=== PATIENT | male | born 1960 | race African-American/Black ===

== ENCOUNTER 2017-08-03 11:22 | Inpatient (IN) | payer OTHER ==
[~2017-08-03] VITALS: Ht 180.3 cm; Wt 77.0 kg
[~2017-08-03 11:22] MED LIST: ALBU8HFA4 IH; AMLO-511 PO; ASPI-556 PO; ATOR20TA86 PO; HYDR-305 PO; LOSA100T29 PO; METF500T6 PO; MOME13HF IH; PANT40TA25 PO; PROM5SYR2 PO; TADA20TA PO; TIOT185 IH
[2017-08-03 11:43] LABS: GLUCOSE,POINT OF CARE 102 MG/DL (70-110)
[2017-08-03 12:45] LABS: EOSINOPHILS % (AUTO) 1.8 % (1.0-6.0); HEMATOCRIT 49.4 % (41-53); HEMOGLOBIN 16.7 g/dL (13.5-17.5); LYMPHOCYTES # (AUTO) 1.7 K/uL (1.0-4.8); LYMPHOCYTES % (AUTO) 41.2 % (22.0-44.0); MEAN CORPUSCULAR HEMOGLOBIN 31.9 pg (26.0-34.0); MEAN CORPUSCULAR HGB CONC 33.8 G/dL (31.0-37.0); MEAN CORPUSCULAR VOLUME 94 fL (80-100); MONOCYTES # (AUTO) 0.7 K/uL (0.1-1.0); MONOCYTES % (AUTO) 16.8 % (2.0-9.0); NEUTROPHILS # (AUTO) 1.7 K/uL (1.8-7.7); NEUTROPHILS % (AUTO) 39.2 % (40.0-70.0); PLATELET COUNT (AUTO) 124 K/uL (150-450); RED BLOOD CELL COUNT(AUTO) 5.23 MIL/uL (4.50-5.90); RED CELL DISTRIBUTION WIDTH 14.6 % (11.5-14.5)
[2017-08-03] MEDS ORDERED: LORazepam 2 MG/ML VIAL IVP PRN (12:45)
[2017-08-03] MEDS ORDERED: ALBUTEROL SULFATE 2.5 MG/0.5 ML NEB SOLUTION NEB PRN (12:45)
[2017-08-03] MEDS ORDERED: ACETAMINOPHEN 325 MG TABLET PO PRN (12:45)
[2017-08-03] MEDS ORDERED: ONDANSETRON HCL 4 MG/2 ML VIAL IVP PRN (12:45)
[2017-08-03] MEDS ORDERED: BISACODYL 10 MG RECTAL RECTAL SUPPOSITORY PR PRN (12:45)
[2017-08-03] MEDS ORDERED: IPRATROPIUM BROMIDE 0.5 MG/2.5 ML NEB SOLUTION NEB PRN (12:45)
[2017-08-03 12:57] LABS: INR 1.2 (0.9-1.1); PROTHROMBIN TIME 12.7 SEC (9.4-11.6)
[2017-08-03] MEDS ORDERED: POTASSIUM CHLORIDE 20 MEQ ER TABLET PO PRN (13:00)
[2017-08-03] MEDS ORDERED: INSULIN LISPRO 100 UNITS/ML SQ PRN (13:00)
[2017-08-03] MEDS ORDERED: POTASSIUM CHL 10 MEQ/WATER 50 ML IV PRN (13:00)
[2017-08-03] MEDS ORDERED: MAGNESIUM SULFATE 4 GM/WATER 100 ML IV PRN (13:00)
[2017-08-03] MEDS ORDERED: DEXTROSE 50%-WATER 25 GM/50 ML SYRINGE IVP PRN (13:00)
[2017-08-03 13:03] LABS: ANION GAP 8 mmol/L (8-16); CALCIUM, TOTAL 8.4 mg/dL (8.8-10.5); CARBON DIOXIDE 28 mmol/L (22-29); CHLORIDE 103 mmol/L (98-107); CREATININE 0.92 mg/dL (0.60-1.30); GLOMERULAR FILTR. RATE CALC > 60 mL/min (>60); GLUCOSE,RANDOM 96 mg/dL (70-110); POTASSIUM 4.2 mmol/L (3.5-5.1); SODIUM SERUM 139 mmol/L (136-145); UREA NITROGEN, BLOOD 5 mg/dL (7-18)
[2017-08-03 13:08] LABS: ALANINE AMINOTRANSFERASE 151 U/L (12-78); ALBUMIN 3.2 g/dL (3.4-5.0); ALKALINE PHOSPHATASE 185 U/L (46-116); ASPARTATE AMINOTRANSFERASE 142 U/L (15-37); BILIRUBIN,TOTAL 1.6 mg/dL (0.1-1.0); TOTAL PROTEIN, SERUM 7.3 g/dL (6.4-8.2)
[2017-08-03 13:11] LABS: B-TYPE NATRIURETIC PEPTIDE 747 pg/mL (0-100)
[2017-08-03] MEDS: ASPIRIN 81 MG CHEWABLE TABLET PO SCH (13:16)
[2017-08-03] MEDS: FUROSEMIDE 20 MG/2 ML VIAL IVP SCH ×2 (13:22→20:59)
[2017-08-03] MEDS: MULTIVITAMINS WITH MINERALS, THERAPEUTIC TABLET PO SCH (13:26)
[2017-08-03] MEDS ORDERED: CARVEDILOL 3.125 MG TABLET PO ONE (14:00)
[2017-08-03] MEDS ORDERED: METOPROLOL TARTRATE 25 MG TABLET PO SCH (14:00)
[2017-08-03] MEDS: LISINOPRIL 5 MG TABLET PO SCH (14:31)
[2017-08-03] MEDS: MAGNESIUM OXIDE 400 MG TABLET PO PRN ×2 (15:56→20:58)
[2017-08-03 16:02] VITALS: BP 131/86
[2017-08-03 19:42] VITALS: BP 100/78
[2017-08-03] MEDS: DOCUSATE SODIUM 100 MG CAPSULE PO SCH (20:58)
[2017-08-03] MEDS: HEPARIN SODIUM,PORCINE 5,000 UNITS/ML VIAL SQ SCH (20:58)
[2017-08-03 21:18] LABS: GLUCOMETER DEV NAME(LOC) 5S 1M; GLUCOSE,POINT OF CARE 87 MG/DL (70-110)
[2017-08-03 23:24] VITALS: BP 99/85
[2017-08-04 00:23] LABS: GLUCOMETER DEV NAME(LOC) 5S 2Q; GLUCOSE,POINT OF CARE 120 MG/DL (70-110)
[2017-08-04 05:24] VITALS: BP 125/88
[2017-08-04 07:52] VITALS: BP 118/75
[2017-08-04] MEDS ORDERED: SODIUM CHLORIDE 0.9% 50 ML ONE (08:33)
[2017-08-04] MEDS: FUROSEMIDE 20 MG/2 ML VIAL IVP SCH ×2 (08:36→20:58)
[2017-08-04] MEDS: PANTOPRAZOLE SODIUM 40 MG DR TABLET PO SCH (08:37)
[2017-08-04] MEDS: MULTIVITAMINS WITH MINERALS, THERAPEUTIC TABLET PO SCH (08:37)
[2017-08-04] MEDS: DOCUSATE SODIUM 100 MG CAPSULE PO SCH ×2 (08:37→20:59)
[2017-08-04] MEDS: ASPIRIN 81 MG CHEWABLE TABLET PO SCH (08:37)
[2017-08-04] MEDS: LISINOPRIL 5 MG TABLET PO SCH (08:38)
[2017-08-04] MEDS: HEPARIN SODIUM,PORCINE 5,000 UNITS/ML VIAL SQ SCH ×2 (08:39→20:59)
[2017-08-04] MEDS ORDERED: BUDE10.2 IH (09:17)
[2017-08-04] MEDS ORDERED: ATOR40TA28 PO (09:17)
[2017-08-04] MEDS ORDERED: MONT10TA21 PO (09:17)
[2017-08-04] MEDS ORDERED: ESCI10TA PO (09:17)
[2017-08-04] MEDS ORDERED: ALBU8.5H8 IH (09:17)
[2017-08-04] MEDS: MAGNESIUM SULFATE 2 GM in DEXTROSE 5%-WATER 50 ML IV PRN (09:23)
[2017-08-04 10:27] VITALS: BP 103/89
[2017-08-04] MEDS ORDERED: IOVERSOL 350 MG/ML 150 ML VIAL ONE (13:56)
[2017-08-04] MEDS ORDERED: SODIUM CHLORIDE 0.9% 100 ML ONE (13:56)
[2017-08-04 20:25] VITALS: BP 104/83
[2017-08-05] VITALS (7 sets, daily range): BP systolic 91–119; BP diastolic 60–92
[2017-08-05 03:14] LABS: GLUCOMETER DEV NAME(LOC) 5S 1M; GLUCOSE,POINT OF CARE 67 MG/DL (70-110)
[2017-08-05 03:14] LABS: GLUCOMETER DEV NAME(LOC) 5S 2Q; GLUCOSE,POINT OF CARE 145 MG/DL (70-110)
[2017-08-05 03:14] LABS: GLUCOMETER DEV NAME(LOC) 5S 2Q; GLUCOSE,POINT OF CARE 118 MG/DL (70-110)
[2017-08-05 03:14] LABS: GLUCOMETER DEV NAME(LOC) 5S 2Q; GLUCOSE,POINT OF CARE 98 MG/DL (70-110)
[2017-08-05 03:14] LABS: GLUCOMETER DEV NAME(LOC) 5S 1M; GLUCOSE,POINT OF CARE 107 MG/DL (70-110)
[2017-08-05 06:39] LABS: GLUCOMETER DEV NAME(LOC) 5S 1M; GLUCOSE,POINT OF CARE 92 MG/DL (70-110)
[2017-08-05 07:22] LABS: BASOPHILS % (AUTO) 0.5 % (0.0-2.0); HEMATOCRIT 44.4 % (41-53); HEMOGLOBIN 14.9 g/dL (13.5-17.5); LYMPHOCYTES # (AUTO) 1.1 K/uL (1.0-4.8); MEAN CORPUSCULAR HEMOGLOBIN 31.8 pg (26.0-34.0); MEAN CORPUSCULAR HGB CONC 33.6 G/dL (31.0-37.0); MEAN CORPUSCULAR VOLUME 95 fL (80-100); MONOCYTES # (AUTO) 0.8 K/uL (0.1-1.0); MONOCYTES % (AUTO) 21.3 % (2.0-9.0); NEUTROPHILS # (AUTO) 1.6 K/uL (1.8-7.7); NEUTROPHILS % (AUTO) 43.2 % (40.0-70.0); RED BLOOD CELL COUNT(AUTO) 4.69 MIL/uL (4.50-5.90); RED CELL DISTRIBUTION WIDTH 14.3 % (11.5-14.5)
[2017-08-05 07:33] LABS: PLATELET COUNT (AUTO) 100 K/uL (150-450)
[2017-08-05 07:51] LABS: ALANINE AMINOTRANSFERASE 89 U/L (12-78); ALBUMIN 2.3 g/dL (3.4-5.0); ALKALINE PHOSPHATASE 140 U/L (46-116); ANION GAP 3 mmol/L (8-16); ASPARTATE AMINOTRANSFERASE 75 U/L (15-37); BILIRUBIN,TOTAL 1.9 mg/dL (0.1-1.0); CALCIUM, TOTAL 7.8 mg/dL (8.8-10.5); CARBON DIOXIDE 34 mmol/L (22-29); CHLORIDE 103 mmol/L (98-107); CREATININE 0.81 mg/dL (0.60-1.30); GLOMERULAR FILTR. RATE CALC > 60 mL/min (>60); GLUCOSE,RANDOM 81 mg/dL (70-110); POTASSIUM 3.3 mmol/L (3.5-5.1); SODIUM SERUM 140 mmol/L (136-145); TOTAL PROTEIN, SERUM 5.5 g/dL (6.4-8.2); UREA NITROGEN, BLOOD 5 mg/dL (7-18)
[2017-08-05] MEDS: HEPARIN SODIUM,PORCINE 5,000 UNITS/ML VIAL SQ SCH (08:29)
[2017-08-05] MEDS: FUROSEMIDE 20 MG/2 ML VIAL IVP SCH ×2 (08:29→20:56)
[2017-08-05] MEDS: ASPIRIN 81 MG CHEWABLE TABLET PO SCH (08:30)
[2017-08-05] MEDS: MULTIVITAMINS WITH MINERALS, THERAPEUTIC TABLET PO SCH (08:30)
[2017-08-05] MEDS: DOCUSATE SODIUM 100 MG CAPSULE PO SCH ×2 (08:30→21:02)
[2017-08-05] MEDS: LISINOPRIL 5 MG TABLET PO SCH (08:30)
[2017-08-05] MEDS: PANTOPRAZOLE SODIUM 40 MG DR TABLET PO SCH (08:30)
[2017-08-05] MEDS: MAGNESIUM SULFATE 2 GM in DEXTROSE 5%-WATER 50 ML IV PRN (09:40)
[2017-08-05] MEDS ORDERED: ALBUTEROL SULFATE HFA 90 MCG/PUFF 8 GM INHALER IH PRN (11:15)
[2017-08-05] MEDS ORDERED: HEPARIN SODIUM,PORCINE 5,000 UNITS/ML VIAL IVP PRN ×2 (11:30→11:45)
[2017-08-05] MEDS ORDERED: HEPARIN SODIUM,PORCINE 5,000 UNITS/ML VIAL IVP ONE (11:30)
[2017-08-05 12:20] LABS: BASOPHILS % (AUTO) 0.6 % (0.0-2.0); EOSINOPHILS % (AUTO) 2.4 % (1.0-6.0); HEMATOCRIT 48.5 % (41-53); LYMPHOCYTES # (AUTO) 0.9 K/uL (1.0-4.8); LYMPHOCYTES % (AUTO) 24.8 % (22.0-44.0); MEAN CORPUSCULAR HEMOGLOBIN 31.4 pg (26.0-34.0); MEAN CORPUSCULAR HGB CONC 33.1 G/dL (31.0-37.0); MEAN CORPUSCULAR VOLUME 95 fL (80-100); MONOCYTES # (AUTO) 0.7 K/uL (0.1-1.0); MONOCYTES % (AUTO) 19.4 % (2.0-9.0); NEUTROPHILS % (AUTO) 52.8 % (40.0-70.0); PLATELET COUNT (AUTO) 102 K/uL (150-450); RED CELL DISTRIBUTION WIDTH 14.5 % (11.5-14.5)
[2017-08-05 12:27] LABS: INR 1.2 (0.9-1.1); PROTHROMBIN TIME 12.8 SEC (9.4-11.6)
[2017-08-05] MEDS: TIOTROPIUM BROMIDE 18 MCG/INH HANDIHALER [5] IH SCH (12:47)
[2017-08-05] MEDS: ESCITALOPRAM OXALATE 10 MG TABLET PO SCH (12:47)
[2017-08-05] MEDS: HEPARIN SODIUM 25000 UNITS/D5W 250 ML IV PRN (12:58)
[2017-08-05] MEDS: SPIRONOLACTONE 25 MG TABLET PO SCH ×2 (15:13→20:56)
[2017-08-05 19:49] LABS: GLUCOMETER DEV NAME(LOC) 5S 2Q; GLUCOSE,POINT OF CARE 96 MG/DL (70-110)
[2017-08-05 20:04] LABS: GLUCOMETER DEV NAME(LOC) 5S 1M; GLUCOSE,POINT OF CARE 109 MG/DL (70-110)
[2017-08-05] MEDS: MONTELUKAST SODIUM 10 MG TABLET PO SCH (21:02)
[2017-08-06 04:37] LABS: BASOPHILS % (AUTO) 0.9 % (0.0-2.0); EOSINOPHILS % (AUTO) 3.9 % (1.0-6.0); HEMATOCRIT 44.8 % (41-53); LYMPHOCYTES % (AUTO) 27.8 % (22.0-44.0); MEAN CORPUSCULAR HEMOGLOBIN 31.7 pg (26.0-34.0); MEAN CORPUSCULAR HGB CONC 33.5 G/dL (31.0-37.0); MEAN CORPUSCULAR VOLUME 95 fL (80-100); MONOCYTES # (AUTO) 0.7 K/uL (0.1-1.0); MONOCYTES % (AUTO) 19.5 % (2.0-9.0); NEUTROPHILS # (AUTO) 1.7 K/uL (1.8-7.7); NEUTROPHILS % (AUTO) 47.9 % (40.0-70.0); PLATELET COUNT (AUTO) 93 K/uL (150-450); RED BLOOD CELL COUNT(AUTO) 4.75 MIL/uL (4.50-5.90); RED CELL DISTRIBUTION WIDTH 14.7 % (11.5-14.5)
[2017-08-06 04:45] LABS: ANION GAP 1 mmol/L (8-16); CALCIUM, TOTAL 8.1 mg/dL (8.8-10.5); CARBON DIOXIDE 36 mmol/L (22-29); CHLORIDE 100 mmol/L (98-107); CREATININE 0.94 mg/dL (0.60-1.30); GLOMERULAR FILTR. RATE CALC > 60 mL/min (>60); GLUCOSE,RANDOM 90 mg/dL (70-110); POTASSIUM 4.2 mmol/L (3.5-5.1); SODIUM SERUM 137 mmol/L (136-145); UREA NITROGEN, BLOOD 5 mg/dL (7-18)
[2017-08-06 05:09] VITALS: BP 108/73
[2017-08-06] MEDS: MAGNESIUM OXIDE 400 MG TABLET PO PRN ×3 (05:27→20:35)
[2017-08-06 07:45] VITALS: BP 113/81
[2017-08-06] MEDS: HEPARIN SODIUM 25000 UNITS/D5W 250 ML IV PRN (07:48)
[2017-08-06] MEDS: MULTIVITAMINS WITH MINERALS, THERAPEUTIC TABLET PO SCH (08:58)
[2017-08-06] MEDS: TIOTROPIUM BROMIDE 18 MCG/INH HANDIHALER [5] IH SCH (08:58)
[2017-08-06] MEDS: ASPIRIN 81 MG CHEWABLE TABLET PO SCH (08:58)
[2017-08-06] MEDS: ESCITALOPRAM OXALATE 10 MG TABLET PO SCH (08:58)
[2017-08-06] MEDS: PANTOPRAZOLE SODIUM 40 MG DR TABLET PO SCH (08:58)
[2017-08-06] MEDS: DOCUSATE SODIUM 100 MG CAPSULE PO SCH ×2 (08:58→20:35)
[2017-08-06] MEDS: LISINOPRIL 5 MG TABLET PO SCH (08:59)
[2017-08-06 11:31] VITALS: BP 106/73
[2017-08-06 11:33] LABS: GLUCOMETER DEV NAME(LOC) 5S 2Q; GLUCOSE,POINT OF CARE 91 MG/DL (70-110)
[2017-08-06 11:33] LABS: GLUCOMETER DEV NAME(LOC) 5S 1M; GLUCOSE,POINT OF CARE 121 MG/DL (70-110)
[2017-08-06] MEDS: INSULIN LISPRO 100 UNITS/ML SQ PRN (11:52)
[2017-08-06] MEDS: SPIRONOLACTONE 25 MG TABLET PO SCH ×2 (13:27→20:35)
[2017-08-06] MEDS: FUROSEMIDE 20 MG TABLET PO SCH (13:28)
[2017-08-06 16:01] VITALS: BP 101/70
[2017-08-06 17:28] LABS: GLUCOMETER DEV NAME(LOC) 5S 1M; GLUCOSE,POINT OF CARE 102 MG/DL (70-110)
[2017-08-06 17:28] LABS: GLUCOMETER DEV NAME(LOC) 5S 2Q; GLUCOSE,POINT OF CARE 104 MG/DL (70-110)
[2017-08-06 19:58] VITALS: BP 102/72
[2017-08-06] MEDS: MONTELUKAST SODIUM 10 MG TABLET PO SCH (20:35)
[2017-08-06 23:49] VITALS: BP 102/55
[2017-08-07 04:46] VITALS: BP 104/74
[2017-08-07 05:50] LABS: BASOPHILS % (AUTO) 0.5 % (0.0-2.0); HEMATOCRIT 43.8 % (41-53); HEMOGLOBIN 14.8 g/dL (13.5-17.5); LYMPHOCYTES # (AUTO) 1.2 K/uL (1.0-4.8); LYMPHOCYTES % (AUTO) 34.2 % (22.0-44.0); MEAN CORPUSCULAR HGB CONC 33.8 G/dL (31.0-37.0); MEAN CORPUSCULAR VOLUME 95 fL (80-100); MONOCYTES # (AUTO) 0.8 K/uL (0.1-1.0); MONOCYTES % (AUTO) 21.5 % (2.0-9.0); NEUTROPHILS # (AUTO) 1.5 K/uL (1.8-7.7); NEUTROPHILS % (AUTO) 40.8 % (40.0-70.0); PLATELET COUNT (AUTO) 92 K/uL (150-450); RED BLOOD CELL COUNT(AUTO) 4.62 MIL/uL (4.50-5.90); RED CELL DISTRIBUTION WIDTH 14.5 % (11.5-14.5)
[2017-08-07 05:57] LABS: ANION GAP 0 mmol/L (8-16); CALCIUM, TOTAL 8.1 mg/dL (8.8-10.5); CARBON DIOXIDE 36 mmol/L (22-29); CHLORIDE 99 mmol/L (98-107); CREATININE 1.01 mg/dL (0.60-1.30); GLOMERULAR FILTR. RATE CALC > 60 mL/min (>60); GLUCOSE,RANDOM 84 mg/dL (70-110); POTASSIUM 4.4 mmol/L (3.5-5.1); SODIUM SERUM 135 mmol/L (136-145); UREA NITROGEN, BLOOD 8 mg/dL (7-18)
[2017-08-07] MEDS: PANTOPRAZOLE SODIUM 40 MG DR TABLET PO SCH (08:08)
[2017-08-07] MEDS: MAGNESIUM OXIDE 400 MG TABLET PO PRN (08:08)
[2017-08-07] MEDS: ASPIRIN 81 MG CHEWABLE TABLET PO SCH (08:09)
[2017-08-07] MEDS: SPIRONOLACTONE 25 MG TABLET PO SCH ×2 (08:09→20:30)
[2017-08-07] MEDS: MULTIVITAMINS WITH MINERALS, THERAPEUTIC TABLET PO SCH (08:09)
[2017-08-07] MEDS: DOCUSATE SODIUM 100 MG CAPSULE PO SCH ×2 (08:09→20:30)
[2017-08-07] MEDS: ESCITALOPRAM OXALATE 10 MG TABLET PO SCH (08:09)
[2017-08-07] MEDS: FUROSEMIDE 20 MG TABLET PO SCH (08:09)
[2017-08-07] MEDS: TIOTROPIUM BROMIDE 18 MCG/INH HANDIHALER [5] IH SCH (08:09)
[2017-08-07 08:14] VITALS: BP 111/77
[2017-08-07] MEDS ORDERED: SODIUM CHLORIDE 0.9% 250 ML IV ONE (11:38)
[2017-08-07 11:53] VITALS: BP 106/71
[2017-08-07] MEDS: LISINOPRIL 5 MG TABLET PO SCH (12:30)
[2017-08-07] MEDS: INSULIN LISPRO 100 UNITS/ML SQ PRN ×2 (12:30→17:53)
[2017-08-07] MEDS: MAGNESIUM SULFATE 2 GM in DEXTROSE 5%-WATER 50 ML IV PRN (12:34)
[2017-08-07 15:38] VITALS: BP 99/68
[2017-08-07 19:47] VITALS: BP 113/53
[2017-08-07] MEDS: MONTELUKAST SODIUM 10 MG TABLET PO SCH (20:30)
[2017-08-08] VITALS (7 sets, daily range): BP systolic 91–126; BP diastolic 60–83
[2017-08-08 05:30] LABS: GLUCOMETER DEV NAME(LOC) 5S 2Q; GLUCOSE,POINT OF CARE 92 MG/DL (70-110)
[2017-08-08 05:30] LABS: GLUCOMETER DEV NAME(LOC) 5S 1M; GLUCOSE,POINT OF CARE 87 MG/DL (70-110)
[2017-08-08 05:30] LABS: GLUCOMETER DEV NAME(LOC) 5S 1M; GLUCOSE,POINT OF CARE 118 MG/DL (70-110)
[2017-08-08 05:31] LABS: GLUCOMETER DEV NAME(LOC) 5S 1M; GLUCOSE,POINT OF CARE 97 MG/DL (70-110)
[2017-08-08 08:13] LABS: GLUCOMETER DEV NAME(LOC) 5S 1M; GLUCOSE,POINT OF CARE 86 MG/DL (70-110)
[2017-08-08 08:39] LABS: ALANINE AMINOTRANSFERASE 60 U/L (12-78); ALBUMIN 2.4 g/dL (3.4-5.0); ALKALINE PHOSPHATASE 115 U/L (46-116); ANION GAP 4 mmol/L (8-16); ASPARTATE AMINOTRANSFERASE 46 U/L (15-37); BILIRUBIN,TOTAL 1.1 mg/dL (0.1-1.0); CALCIUM, TOTAL 7.9 mg/dL (8.8-10.5); CARBON DIOXIDE 30 mmol/L (22-29); CHLORIDE 101 mmol/L (98-107); GLOMERULAR FILTR. RATE CALC > 60 mL/min (>60); GLUCOSE,RANDOM 81 mg/dL (70-110); POTASSIUM 3.9 mmol/L (3.5-5.1); SODIUM SERUM 135 mmol/L (136-145); TOTAL PROTEIN, SERUM 5.8 g/dL (6.4-8.2); UREA NITROGEN, BLOOD 6 mg/dL (7-18)
[2017-08-08] MEDS: TIOTROPIUM BROMIDE 18 MCG/INH HANDIHALER [5] IH SCH (08:39)
[2017-08-08] MEDS: MULTIVITAMINS WITH MINERALS, THERAPEUTIC TABLET PO SCH (08:40)
[2017-08-08] MEDS: ASPIRIN 81 MG CHEWABLE TABLET PO SCH (08:40)
[2017-08-08] MEDS: ESCITALOPRAM OXALATE 10 MG TABLET PO SCH (08:41)
[2017-08-08] MEDS: PANTOPRAZOLE SODIUM 40 MG DR TABLET PO SCH (08:41)
[2017-08-08] MEDS: FUROSEMIDE 20 MG TABLET PO SCH (08:41)
[2017-08-08] MEDS: DOCUSATE SODIUM 100 MG CAPSULE PO SCH ×2 (09:00→20:29)
[2017-08-08] MEDS: LISINOPRIL 5 MG TABLET PO SCH (09:53)
[2017-08-08] MEDS: SPIRONOLACTONE 25 MG TABLET PO SCH ×2 (09:54→20:29)
[2017-08-08] MEDS: PredniSONE 20 MG TABLET PO SCH (12:13)
[2017-08-08] MEDS: BENZONATATE 100 MG CAPSULE PO SCH ×3 (12:13→23:24)
[2017-08-08] MEDS: MAGNESIUM OXIDE 400 MG TABLET PO PRN ×3 (12:51→23:24)
[2017-08-08 17:00] LABS: ABG A-A DIFF O2 61.9 mmHg (10-20.0); ABG BASE EXCESS 1.3 mmol/L (-2.0-3.0); ABG CARBOXYHEMOGLOBIN 1.9 % (0.0-1.5); ABG HCO3 26.2 mmol/L (22.0-26.0); ABG METHEMOGLOBIN 0.2 % (0.0-1.5); ABG OXYGEN SATURATION 87.8 % (95.0-98.0); ABG PCO2 32 mmHg (35-45); ABG PH 7.507 (7.35-7.450); ABG TOTAL HEMOGLOBIN 16.6 G/dL (12.0-18.0); PO2, ARTERIAL BG 50.1 mmHg (84.0-92.0); SOURCE, BLOOD GAS ARTERIAL; TEMPERATURE, FAHRENHEIT, BG 98.6 FAHREN (96.0-98.6)
[2017-08-08 17:01] LABS: O2 DEVICE,BLOOD GAS ROOM AIR (ROOM AIR); SITE, BLOOD GAS RT RADIAL
[2017-08-08] MEDS: INSULIN LISPRO 100 UNITS/ML SQ PRN (20:27)
[2017-08-08] MEDS: MONTELUKAST SODIUM 10 MG TABLET PO SCH (20:29)
[2017-08-08] MEDS: HEPARIN SODIUM,PORCINE 5,000 UNITS/ML VIAL SQ SCH (20:29)
[2017-08-09] MEDS: HEPARIN SODIUM,PORCINE 5,000 UNITS/ML VIAL SQ SCH ×3 (00:07→20:25)
[2017-08-09 04:39] VITALS: BP 97/72
[2017-08-09 07:48] VITALS: BP 115/70
[2017-08-09 07:59] LABS: GLUCOMETER DEV NAME(LOC) 5S 1M; GLUCOSE,POINT OF CARE 206 MG/DL (70-110)
[2017-08-09 07:59] LABS: GLUCOMETER DEV NAME(LOC) 5S 1M; GLUCOSE,POINT OF CARE 97 MG/DL (70-110)
[2017-08-09 07:59] LABS: GLUCOMETER DEV NAME(LOC) 5S 2Q; GLUCOSE,POINT OF CARE 107 MG/DL (70-110)
[2017-08-09 07:59] LABS: GLUCOMETER DEV NAME(LOC) 5S 2Q; GLUCOSE,POINT OF CARE 127 MG/DL (70-110)
[2017-08-09] MEDS: MAGNESIUM OXIDE 400 MG TABLET PO PRN ×2 (08:55→13:30)
[2017-08-09] MEDS: FUROSEMIDE 20 MG TABLET PO SCH (08:55)
[2017-08-09] MEDS: SPIRONOLACTONE 25 MG TABLET PO SCH (08:56)
[2017-08-09] MEDS: ESCITALOPRAM OXALATE 10 MG TABLET PO SCH (08:56)
[2017-08-09] MEDS: PredniSONE 20 MG TABLET PO SCH (08:56)
[2017-08-09] MEDS: ASPIRIN 81 MG CHEWABLE TABLET PO SCH (08:56)
[2017-08-09] MEDS: MULTIVITAMINS WITH MINERALS, THERAPEUTIC TABLET PO SCH (08:56)
[2017-08-09] MEDS: PANTOPRAZOLE SODIUM 40 MG DR TABLET PO SCH (08:56)
[2017-08-09] MEDS: BENZONATATE 100 MG CAPSULE PO SCH ×3 (08:56→23:55)
[2017-08-09] MEDS: LISINOPRIL 5 MG TABLET PO SCH (08:56)
[2017-08-09] MEDS: TIOTROPIUM BROMIDE 18 MCG/INH HANDIHALER [5] IH SCH (08:56)
[2017-08-09] MEDS: DOCUSATE SODIUM 100 MG CAPSULE PO SCH ×2 (08:56→20:26)
[2017-08-09 11:47] VITALS: BP 96/70
[2017-08-09] MEDS ORDERED: MAGNESIUM SULFATE 2 GM/WATER 50 ML IV PRN (14:00)
[2017-08-09 15:26] VITALS: BP 103/78
[2017-08-09 19:45] VITALS: BP 110/76
[2017-08-09] MEDS: MONTELUKAST SODIUM 10 MG TABLET PO SCH (20:25)
[2017-08-09] MEDS: INSULIN LISPRO 100 UNITS/ML SQ PRN (21:05)
[2017-08-10 00:12] VITALS: BP 97/56
[2017-08-10] MEDS: MAGNESIUM OXIDE 400 MG TABLET PO PRN (03:02)
[2017-08-10 04:34] VITALS: BP 113/80
[2017-08-10 07:27] VITALS: BP 108/66
[2017-08-10 07:36] LABS: ALBUMIN 2.5 g/dL (3.4-5.0)
[2017-08-10] MEDS: ESCITALOPRAM OXALATE 10 MG TABLET PO SCH (08:32)
[2017-08-10] MEDS: MULTIVITAMINS WITH MINERALS, THERAPEUTIC TABLET PO SCH (08:32)
[2017-08-10] MEDS: ASPIRIN 81 MG CHEWABLE TABLET PO SCH (08:33)
[2017-08-10] MEDS: PredniSONE 20 MG TABLET PO SCH (08:33)
[2017-08-10] MEDS: PANTOPRAZOLE SODIUM 40 MG DR TABLET PO SCH (08:33)
[2017-08-10] MEDS: FUROSEMIDE 20 MG TABLET PO SCH (08:33)
[2017-08-10] MEDS: BENZONATATE 100 MG CAPSULE PO SCH ×2 (08:33→15:22)
[2017-08-10] MEDS: DOCUSATE SODIUM 100 MG CAPSULE PO SCH (08:35)
[2017-08-10] MEDS: HEPARIN SODIUM,PORCINE 5,000 UNITS/ML VIAL SQ SCH (08:35)
[2017-08-10] MEDS: LISINOPRIL 5 MG TABLET PO SCH (08:35)
[2017-08-10 08:43] LABS: MAGNESIUM 1.8 mg/dL (1.80-2.40)
[2017-08-10] MEDS ORDERED: SPIRONOLACTONE 25 MG TABLET PO SCH (09:00)
[2017-08-10 09:03] LABS: GLUCOMETER DEV NAME(LOC) 5S 2Q; GLUCOSE,POINT OF CARE 217 MG/DL (70-110)
[2017-08-10] MEDS: TIOTROPIUM BROMIDE 18 MCG/INH HANDIHALER [5] IH SCH (10:18)
[2017-08-10 10:43] LABS: GLUCOMETER DEV NAME(LOC) 5S 1M; GLUCOSE,POINT OF CARE 129 MG/DL (70-110)
[2017-08-10 10:43] LABS: GLUCOMETER DEV NAME(LOC) 5S 1M; GLUCOSE,POINT OF CARE 97 MG/DL (70-110)
[2017-08-10 10:43] LABS: GLUCOMETER DEV NAME(LOC) 5S 1M; GLUCOSE,POINT OF CARE 119 MG/DL (70-110)
[2017-08-10 11:14] VITALS: BP 94/71
[2017-08-10] MEDS ORDERED: FURO20 PO (11:59)
[2017-08-10] MEDS ORDERED: SPIR25 PO (11:59)
[2017-08-10] MEDS ORDERED: LISI-660 PO (12:00)
[2017-08-10 15:30] VITALS: BP 102/80
[2017-08-10] MEDS: INSULIN LISPRO 100 UNITS/ML SQ PRN (17:29)
[2017-08-10 21:33] LABS: GLUCOMETER DEV NAME(LOC) 5S 2Q; GLUCOSE,POINT OF CARE 186 MG/DL (70-110)
[2017-08-10 21:33] LABS: GLUCOMETER DEV NAME(LOC) 5S 2Q; GLUCOSE,POINT OF CARE 94 MG/DL (70-110)
== END 2017-08-10 18:45 | disposition home or self-care (01) | DRG 194 ==
LOC: EMS 11:23 → 5S 13:46
PROVIDERS: ADMIT Internal Medicine; ATTEND Internal Medicine
DX: I11.0 Hypertensive heart disease with heart failure (principal); J96.21 Acute and chronic respiratory failure with hypoxia; E43 Unspecified severe protein-calorie malnutrition; I42.9 Cardiomyopathy, unspecified; J84.10 Pulmonary fibrosis, unspecified; K70.30 Alcoholic cirrhosis of liver without ascites; I50.23 Acute on chronic systolic (congestive) heart failure; K70.10 Alcoholic hepatitis without ascites; F10.239 Alcohol dependence with withdrawal, unspecified; F17.210 Nicotine dependence, cigarettes, uncomplicated; E11.9 Type 2 diabetes mellitus without complications; J44.9 Chronic obstructive pulmonary disease, unspecified; E78.5 Hyperlipidemia, unspecified; D86.0 Sarcoidosis of lung; Z68.23 Body mass index [BMI] 23.0-23.9, adult; F20.9 Schizophrenia, unspecified; I50.20 Unspecified systolic (congestive) heart failure; I82.4Z9 Acute embolism and thrombosis of unspecified deep veins of unspecified distal lower extremity; K21.9 Gastro-esophageal reflux disease without esophagitis; Z82.49 Family history of ischemic heart disease and other diseases of the circulatory system; Z83.3 Family history of diabetes mellitus; Z88.8 Allergy status to other drugs, medicaments and biological substances; Z71.41 Alcohol abuse counseling and surveillance of alcoholic; Z91.19 Patient's noncompliance with other medical treatment and regimen
CPT/HCPCS: 71275; 76700; 82164; 82271; 82805; 83735; 84132; 93005; 93306; 93970; 96374; 99285; J1644; J1940; J3475; J7050; J7060